=== PATIENT | female | born 1995 | race Caucasian/White ===

== ENCOUNTER 2022-01-29 06:37 | Inpatient (IN) | payer MEDICAID ==
[2022-01-29] MEDS ORDERED: Sodium Chloride 0.9% 10 ML Syringe FLUSH PRN (07:19)
[2022-01-29] MEDS ORDERED: Lidocaine 1% 50 ML MDV INJECT ONE (07:19)
[2022-01-29] MEDS ORDERED: Calcium Carbonate 500 MG Tab.Chew PO PRN (07:19)
[2022-01-29] MEDS ORDERED: Ondansetron 4 MG/2 ML SDV IVPUSH PRN (07:19)
[2022-01-29] MEDS ORDERED: Oxytocin/Lactated Ringers 10 UNIT/1,000 ML BAG IV SCH ×2 (07:30→18:21)
[2022-01-29] MEDS: Lactated Ringers 1,000 ML IV SCH ×2 (07:40→17:23)
[2022-01-29] MEDS ORDERED: ePHEDrine 50 MG/ML SDV IVPUSH PRN (07:49)
[2022-01-29] MEDS ORDERED: fentaNYL 100 MCG/2 ML SDV EPIDUR PRN (07:49)
[2022-01-29] MEDS ORDERED: diphenhydrAMINE 50 MG/ML SDV IVPUSH PRN (07:49)
[2022-01-29] MEDS ORDERED: Bupivacaine/fentaNYL/NS 100 ML Bag EPIDUR PRN (07:49)
[2022-01-29] MEDS ORDERED: Sodium Chloride 0.9% 10 ML Syringe FLUSH SCH (09:00)
[2022-01-29] MEDS ORDERED: Oxytocin/Lactated Ringers 20 UNIT/1,000 ML BAG IV SCH (15:30)
[2022-01-29] MEDS: Nalbuphine HCl 10 MG/ 1ML Amp IVPUSH PRN ×2 (17:04→17:08)
[2022-01-29] MEDS ORDERED: Witch Hazel Medicated Pads 40/Jar TOP PRN (18:21)
[2022-01-29] MEDS ORDERED: Docusate Sodium 100 MG Cap PO PRN (18:21)
[2022-01-29] MEDS ORDERED: Hydrocortisone Acetate 25 MG Supp RECTAL PRN (18:21)
[2022-01-29] MEDS ORDERED: Ibuprofen 600 MG Tab PO PRN (18:21)
[2022-01-29] MEDS ORDERED: Benzocaine/Menthol 20%-0.5% Spray 78 GM Cannister TOP PRN (18:21)
[2022-01-29] MEDS ORDERED: Magnesium Hydroxide 400 MG/5 ML Susp 30 ML Cup PO PRN (18:21)
[2022-01-29] MEDS ORDERED: Acetaminophen 325 MG Tab PO PRN (18:21)
[2022-01-30 08:22] VITALS: PULSE 65
[2022-01-30] MEDS ORDERED: Prenatal Multivitamin with Calcium/Folic Acid/Iron Tab PO SCH (09:00)
[2022-01-30 15:13] VITALS: BP 121/71
== END 2022-01-30 18:45 | disposition home or self-care (01) | DRG 807 ==
LOC: JD.OB 06:53
PROVIDERS: ADMIT Obstetrics & Gynecology; ATTEND Obstetrics & Gynecology
PROC: 10E0XZZ Delivery of Products of Conception, External Approach (ICD-10-PCS; principal; 2022-01-29)
PROC: 00HU33Z Insertion of Infusion Device into Spinal Canal, Percutaneous Approach (ICD-10-PCS; 2022-01-29)
PROC: 3E0R3BZ Introduction of Anesthetic Agent into Spinal Canal, Percutaneous Approach (ICD-10-PCS; 2022-01-29)
PROC: 4A1HXCZ Monitoring of Products of Conception, Cardiac Rate, External Approach (ICD-10-PCS; 2022-01-29)
DX: O42.92 Full-term premature rupture of membranes, unspecified as to length of time between rupture and onset of labor (principal); Z37.0 Single live birth; Z3A.39 39 weeks gestation of pregnancy; O99.52 Diseases of the respiratory system complicating childbirth; J45.909 Unspecified asthma, uncomplicated; O99.214 Obesity complicating childbirth; O99.344 Other mental disorders complicating childbirth; E66.9 Obesity, unspecified; F90.9 Attention-deficit hyperactivity disorder, unspecified type
CPT/HCPCS: 36415; 59025; 59409; 85025; 86592; 86850; 86900; 86901; A9270-GY; J2300; J2590; J7120

== ENCOUNTER 2024-11-04 07:03 | Inpatient (IN) | payer MEDICAID ==
[2024-11-04] MEDS ORDERED: Lidocaine 1% 50 ML MDV INJECT PRN (07:41)
[2024-11-04] MEDS ORDERED: Nalbuphine 10 MG/1 ML Vial IVPUSH PRN (07:41)
[2024-11-04] MEDS ORDERED: Ondansetron 4 MG/2 ML SDV IVPUSH PRN (07:41)
[2024-11-04] MEDS ORDERED: Sodium Chloride 0.9% 10 ML Syringe FLUSH PRN (07:41)
[2024-11-04] MEDS ORDERED: Acetaminophen 325 MG Tab PO PRN ×2 (07:41→20:24)
[2024-11-04] MEDS ORDERED: Oxytocin/0.9 % Sodium Chloride 30 UNIT/500 ML BAG IV SCH ×2 (07:45→20:24)
[2024-11-04] MEDS: Lactated Ringers 1,000 ML IV SCH (07:59)
[2024-11-04] MEDS: Oxytocin/0.9 % Sodium Chloride 30 UNIT/500 ML BAG IV SCH (08:00)
[2024-11-04 08:03] LABS: BASOPHILS PERCENT AUTO 0.6 % (0.0-1.0); EOSINOPHILS ABSOLUTE AUTO 0.2 K/mm3 (0.0-0.4); EOSINOPHILS PERCENT AUTO 2.3 % (0.0-6.0); HEMATOCRIT 32.7 % (37.0-47.0); HEMOGLOBIN 10.7 gm/dl (12.0-16.0); IMMATURE GRAN ABSOLUTE AUTO 0.04 K/mm3 (0.00-0.05); IMMATURE GRAN PERCENT AUTO 0.6 % (0.0-0.4); LYMPHOCYTES ABSOLUTE AUTO 1.2 K/mm3 (1.0-4.8); LYMPHOCYTES PERCENT AUTO 17.5 % (24.0-44.0); MEAN CORPUSCULAR HEMOGLOBIN 28.1 pg (28.0-32.0); MEAN CORPUSCULAR HGB CONC 32.7 g/dl (32.0-36.0); MEAN CORPUSCULAR VOLUME 85.8 fl (83.0-99.0); MEAN PLATELET VOLUME 11.3 fl (9.4-12.3); MONOCYTES ABSOLUTE AUTO 0.7 K/mm3 (0.0-0.8); MONOCYTES PERCENT AUTO 9.5 % (0.0-8.0); NEUTROPHILS ABSOLUTE AUTO 4.8 K/mm3 (1.8-7.7); NEUTROPHILS PERCENT AUTO 69.5 % (41.0-71.0); PLATELET COUNT,PLT 282 K/mm3 (150-400); RED BLOOD CELL COUNT 3.81 M/mm3 (4.10-5.30); WHITE BLOOD CELL COUNT,WBC 6.84 K/mm3 (3.9-11.3)
[2024-11-04 08:34] LABS: CREATININE 0.6 mg/dL (0.55-1.02); EST CRCL DRUG DOSING (CG) 141.98 mL/min
[2024-11-04 11:37] LABS: CREATININE,URINE RAND 70.3 mg/dL (30.0-125.0); PROTEIN CREATININE RATIO,URINE 260.3 mg/g (0-149); PROTEIN,URINE RANDOM 18.3 mg/dL (0.0-11.8)
[2024-11-04] MEDS: Sodium Chloride 0.9% 10 ML Syringe FLUSH SCH (14:27)
[2024-11-04] MEDS ORDERED: Docusate Sodium 100 MG Cap PO PRN (20:24)
[2024-11-04] MEDS ORDERED: Witch Hazel Medicated Pads 40/Jar TOP PRN (20:24)
[2024-11-04] MEDS ORDERED: Magnesium Hydroxide 400 MG/5 ML Susp 30 ML Cup PO PRN (20:24)
[2024-11-04] MEDS ORDERED: Hydrocortisone Acetate 25 MG Supp RECTAL PRN (20:24)
[2024-11-04] MEDS ORDERED: Benzocaine/Menthol 20%-0.5% Spray 78 GM Cannister TOP PRN (20:24)
[2024-11-04] MEDS ORDERED: Simethicone 80 MG Tab.Chew PO PRN (20:24)
[2024-11-05] MEDS: Ibuprofen 600 MG Tab PO SCH (00:06)
[2024-11-05] MEDS: Prenatal Multivitamin with Calcium/Folic Acid/Iron Tab PO SCH (15:45)
[2024-11-05 16:47] VITALS: BP 134/88; PULSE 70
== END 2024-11-05 18:10 | disposition home or self-care (01) | DRG 807 ==
LOC: JD.OB 07:03 → OBSVTOIN 17:02 → JD.OB 17:02
PROVIDERS: ADMIT Obstetrics & Gynecology; ATTEND Obstetrics & Gynecology
PROC: 10907ZC Drainage of Amniotic Fluid, Therapeutic from Products of Conception, Via Natural or Artificial Opening (ICD-10-PCS; principal; 2024-11-04)
PROC: 10E0XZZ Delivery of Products of Conception, External Approach (ICD-10-PCS; principal; 2024-11-04)
PROC: 3E0R3BZ Introduction of Anesthetic Agent into Spinal Canal, Percutaneous Approach (ICD-10-PCS; principal; 2024-11-04)
PROC: 3E033VJ Introduction of Other Hormone into Peripheral Vein, Percutaneous Approach (ICD-10-PCS; principal; 2024-11-04)
DX: O24.425 Gestational diabetes mellitus in childbirth, controlled by oral hypoglycemic drugs (principal); Z37.0 Single live birth; O71.82 Other specified trauma to perineum and vulva; O99.214 Obesity complicating childbirth; Z3A.39 39 weeks gestation of pregnancy; Z79.84 Long term (current) use of oral hypoglycemic drugs; Z79.899 Other long term (current) drug therapy; Z88.0 Allergy status to penicillin; Z88.8 Allergy status to other drugs, medicaments and biological substances; Z98.890 Other specified postprocedural states
CPT/HCPCS: 36415; 59025; 59409; 82565; 82570; 82947; 83615; 84156; 84450; 84460; 84520; 85025; 86592; A9270-GY; J7120; J7999